=== PATIENT | female | born 1970 | race Hispanic/Latino ===

== ENCOUNTER 2025-02-22 06:31 | Day surgery (SDC) | payer MEDICAID ==
[2025-02-22] VITALS (10 sets, daily range): BP systolic 116–150; BP diastolic 64–85; PULSE 57–73; RESP 15–18; TEMP 97.4–99.1
[~2025-02-22] VITALS: Ht 162.6 cm; Wt 117.9 kg
[~2025-02-22 06:31] MED LIST: METO-409 PO
[2025-02-22] MEDS ORDERED: 0.9%NACL 1000ML 1,000 ML IV ONE (07:00)
[2025-02-22] MEDS ORDERED: LIDOCAINE PF 100MG/5ML (2%) SYRINGE 5ML ONE (07:51)
[2025-02-22] MEDS ORDERED: proPOFol 10 MG/ML 20ML VIAL IV ONE (07:51)
== END 2025-02-22 10:50 | disposition home or self-care (01) ==
LOC: DAH 06:31
PROVIDERS: ATTEND Surgery
DX: R12 Heartburn (principal); K29.50 Unspecified chronic gastritis without bleeding; K20.90 Esophagitis, unspecified without bleeding; K31.89 Other diseases of stomach and duodenum; K22.89 Other specified disease of esophagus; K44.9 Diaphragmatic hernia without obstruction or gangrene; I10 Essential (primary) hypertension; E66.01 Morbid (severe) obesity due to excess calories; E55.9 Vitamin D deficiency, unspecified; E61.1 Iron deficiency; Z68.41 Body mass index [BMI] 40.0-44.9, adult; Z79.899 Other long term (current) drug therapy
CPT/HCPCS: 43239; 81025; J7030; J2003; J2704; A4215 ×2; A4223; A4222; A4221; A4663; A4606; J3490